=== PATIENT | female | born 1985 | race Caucasian/White ===

== ENCOUNTER 2018-11-30 06:49 | Observation (INO) ==
[2018-11-30] MEDS ORDERED: 0.9 % Sodium Chloride 1,000 ML IVC ONE (07:44)
--- NOTE | 2018-11-30 08:05 | Emergency Department Note ---
Disposition Clinical Impression: Thrombocytopenia, Elevated liver enzymes, Hyperbilirubinemia, Elevated INR Post-op bleeding Qualifiers: Surgical complication system/body Area: genitourinary Procedure type: genitourinary Qualified Code(s): N99.820 - Postprocedural hemorrhage of a genitourinary system organ or structure following a genitourinary system procedure Anemia Qualifiers: Anemia type: other cause Other causes of anemia: other cause, not classified Qualified Code(s): D64.89 - Other specified anemias Disposition: Admitted As Inpatient Condition: Fair Time of Disposition: 08:11 Female Urogenital HPI - General Chief complaint: ED Vaginal Bleeding Stated complaint: post op bleeding Time Seen by Provider: 11/30/18 07:30 Source: patient, EMS Limitations: no limitations Nursing Notes Reviewed: Yes Vital Signs Reviewed: Yes - History of Present Illness HPI Narrative: 33-year-old female presents emergency Department with concerns of vaginal bleeding. Patient reports she had a LEEP procedure but performed 8 days ago, since that time she has had increasing foul-smelling discharge. She notified her [employer] provider who prescribed an antibiotic. Unknown if this is vaginal cream versus oral pill however patient did not start taking medication as it was not preauthorized and she was unable to get up from the pharmacy. Patient states that around 2 AM she started developing brisk vaginal bleeding. She has gone through multiple pads over the past few hours. She was initially evaluated at [facility] who performed lab work and sent her to [place] emergency department for further evaluation. Upon reevaluation the patient is tachycardic, she required changing of her pad here in the emergency department. Patient reports mild suprapubic abdominal cramping without hematochezia or melen a or vomiting. Patient denies chest pain or shortness breath or palpitations. No history of bleeding disorder in the past. She does not take anticoagulant medication. - Related Data Home Medications Medication Instructions Recorded Confirmed Buprenorphine HCl/Naloxone HCl 1 tab SL 1-2XD 11/22/18 11/22/18 [Buprenorphin-Naloxon 8-2 mg Sl] Previous Rx's Medication Instructions Recorded Ibuprofen 800 mg PO Q8HR PRN #20 tablet 11/30/18 Tranexamic Acid [Lysteda] 1,300 mg PO TID 5 Days #30 tablet 11/30/18 metroNIDAZOLE [Flagyl] 500 mg PO TID 10 Days #30 tablet 11/30/18 Allergies Allergy/AdvReac Type Severity Reaction Status Date / Time No Known Allergies Allergy Verified 11/22/18 08:32 All systems ED: reviewed and negative except as stated. Review of Systems: As Per HPI Past Medical History - Past Medical History Attestation: Yes The following information was validated with the patient. Source: patient Medical history: Reports: other Psychiatric history: Reports: anxiety, depression - Social History Smoking Status: Current every day smoker Smokeless Tobacco Status: No Alcohol use: Reports: occasionally Drug use: Reports: other Physical Exam General: Alert and in no acute distress Skin: Warm, dry, intact Head: Normocephalic and atraumatic Neck: Supple, trachea midline and no tenderness Cardiovascular: Tachycardia no murmur, normal perfusion Respiratory: CTAB, no wheezing, cough, or respiratory distress Musculoskeletal: Normal strength, no tenderness, swelling or deformity GI: Soft, mild tenderness to palpation of the suprapubic region without evidence of rigidity, guarding, rebound, nondistended. : External vaginal exam performed with female nurse present in the room. No lacerations noted on external exam. Patient has brisk bright red bleeding present on exam. Neuro: A&O to person, place, time and situation. No focal deficits noted on exam Psychiatric: cooperative and appropriate mood and affect. - General Limitations: no limitations General appearance: alert, in no apparent distress Course - Reevaluation(s) Reevaluation #1: 0800 - spoke with OB coverage ,Nica Bains, regarding the patient's case and presentation and requested immediate OB support for further evaluation and likely need for cautery of the postop bleeding. Laboratory evaluation was ordered and IV fluids are being given. Patient is mildly tachycardic at 110 but is not hypotensive at this time. Vital Signs Temperature 98.2 F 11/30/18 06:53 Pulse Rate 94 11/30/18 06:53 Respiratory Rate 18 11/30/18 06:53 Blood Pressure 109/66 11/30/18 06:53 O2 Sat by Pulse Oximetry 100 11/30/18 06:53 Temperature 97.8 F 11/30/18 12:20 Pulse Rate 80 11/30/18 16:20 Respiratory Rate 16 11/30/18 16:20 Blood Pressure 100/51 11/30/18 16:20 O2 Sat by Pulse Oximetry 97 11/30/18 16:20 Oxygen Delivery Oxygen Delivery [0945] Nasal Cannula Oxygen Delivery [920] Nasal Cannula Oxygen Delivery [940] Nasal Cannula Oxygen Delivery [935] Nasal Cannula Oxygen Delivery [930] Nasal Cannula Oxygen Delivery [925] Nasal Cannula Oxygen Delivery Room Air Urogenital-Female - MDM Narrative Medical decision making narrative: Patient was evaluated in the emergency department by OB PA and then by the OB attending, Dr. Harmon. They were unable to control bleeding in the emergency department and then patient was taken to the OR for continued care. - Medical Records Medical records reviewed: Yes I reviewed the patient's medical records. - Lab Data Lab results reviewed: Yes I reviewed the patient's lab results. Result diagrams: 11/30/18 11:40 11/30/18 08:16 Lab Results 11/30/18 11/30/18 11/30/18 Range/Units 08:16 08:16 08:16 WBC 6.4 (4.3-11.1) K/mcL RBC 2.34 L (3.82-4.97) M/mcL Hgb 8.2 L (11.5-15.4) g/dL Hct 24.4 L (35.3-44.9) % MCV 104.3 H (83.0-100.0) fL MCH 35.0 H (28.0-33.3) pg MCHC 33.6 (31.6-35.5) g/dL RDW 13.9 (11.5-14.5) % Plt Count 39 L (140-400) K/mcL MPV 10.2 (9.4-12.4) fL Immature Gran % 0.6 (0-4) % Seg Neutrophils % 39.1 % Lymphocytes % 48.7 % Monocytes % 8.9 % Eosinophils % 1.9 % Basophils % 0.8 % Neutrophils # 2.5 (1.6-8.9) K/mcL Lymphocytes # 3.1 (0.6-4.6) K/mcL Monocytes # 0.6 (0.0-1.3) K/mcL Eosinophils # 0.1 (0.0-0.6) K/mcL Basophils # 0.1 (0.0-0.2) K/mcL Immature Plt Fraction 3.2 (1.1-6.1) % PT 30.2 H (9.4-12.1) Seconds INR 2.7 APTT 37.9 H (26.0-36.0) Seconds Sodium 140 (136-145) mEq/L Potassium 3.6 (3.5-5.1) mEq/L Chloride 107 (98-107) mEq/L Carbon Dioxide 26 (23-29) mEq/L BUN 7 (6-20) mg/dL Creatinine 0.66 (0.60-1.20) mg/dL Est GFR ( Amer) > 60 (> 60) Est GFR (Non-Af Amer) > 60 (> 60) BUN/Creatinine Ratio 11 (6-26) Glucose 111 H (70-105) mg/dL Calculated Osmolality 289 (280-300) Calcium 7.6 L (8.6-10.3) mg/dL Total Bilirubin 5.2 H (0.3-1.0) mg/dL Direct Bilirubin 3.0 H (0.0-0.2) mg/dL Indirect Bilirubin 2.2 H (0.0-1.2) mg/dL AST 79 H (13-39) Units/L ALT 30 (7-52) Units/L Alkaline Phosphatase 138 H (34-104) Units/L Serum Total Protein 4.8 L (6.4-8.9) g/dL Albumin 2.2 L (3.5-5.7) g/dL Globulin 2.6 (2.4-3.5) g/dL Albumin/Globulin Ratio 0.8 L (1.1-2.2) Blood Type Antibody Screen Crossmatch 11/30/18 Range/Units 08:16 WBC (4.3-11.1) K/mcL RBC (3.82-4.97) M/mcL Hgb (11.5-15.4) g/dL Hct (35.3-44.9) % MCV (83.0-100.0) fL MCH (28.0-33.3) pg MCHC (31.6-35.5) g/dL RDW (11.5-14.5) % Plt Count (140-400) K/mcL MPV (9.4-12.4) fL Immature Gran % (0-4) % Seg Neutrophils % % Lymphocytes % % Monocytes % % Eosinophils % % Basophils % % Neutrophils # (1.6-8.9) K/mcL Lymphocytes # (0.6-4.6) K/mcL Monocytes # (0.0-1.3) K/mcL Eosinophils # (0.0-0.6) K/mcL Basophils # (0.0-0.2) K/mcL Immature Plt Fraction (1.1-6.1) % PT (9.4-12.1) Seconds INR APTT (26.0-36.0) Seconds Sodium (136-145) mEq/L Potassium (3.5-5.1) mEq/L Chloride (98-107) mEq/L Carbon Dioxide (23-29) mEq/L BUN (6-20) mg/dL Creatinine (0.60-1.20) mg/dL Est GFR ( Amer) (> 60) Est GFR (Non-Af Amer) (> 60) BUN/Creatinine Ratio (6-26) Glucose (70-105) mg/dL Calculated Osmolality (280-300) Calcium (8.6-10.3) mg/dL Total Bilirubin (0.3-1.0) mg/dL Direct Bilirubin (0.0-0.2) mg/dL Indirect Bilirubin (0.0-1.2) mg/dL AST (13-39) Units/L ALT (7-52) Units/L Alkaline Phosphatase (34-104) Units/L Serum Total Protein (6.4-8.9) g/dL Albumin (3.5-5.7) g/dL Globulin (2.4-3.5) g/dL Albumin/Globulin Ratio (1.1-2.2) Blood Type O POSITIVE Antibody Screen NEGATIVE Crossmatch See Detail
[2018-11-30 08:31] LABS: Basophils % 0.8 %; Red Cell Distribution Width 13.9 % (11.5-14.5)
[2018-11-30 08:32] LABS: Basophils # 0.1 K/mcL (0.0-0.2); Eosinophils # 0.1 K/mcL (0.0-0.6); Eosinophils % 1.9 %; Hematocrit 24.4 % (35.3-44.9); Hemoglobin 8.2 g/dL (11.5-15.4); Immature Granulocytes % 0.6 % (0-4); Immature Platelets 3.2 % (1.1-6.1); Lymphocytes # 3.1 K/mcL (0.6-4.6); Lymphocytes % 48.7 %; Mean Corpuscular HGB Conc 33.6 g/dL (31.6-35.5); Mean Corpuscular Volume 104.3 fL (83.0-100.0); Mean Platelet Volume 10.2 fL (9.4-12.4); Monocytes # 0.6 K/mcL (0.0-1.3); Monocytes % 8.9 %; Neutrophils # 2.5 K/mcL (1.6-8.9); Red Blood Count 2.34 M/mcL (3.82-4.97); Segmented Neutrophils % 39.1 %; White Blood Count 6.4 K/mcL (4.3-11.1)
[2018-11-30 08:34] LABS: Platelet Count 39 K/mcL (140-400)
[2018-11-30 08:40] LABS: INR 2.7; Prothrombin Time 30.2 Seconds (9.4-12.1)
[2018-11-30] MEDS ORDERED: Lidocaine/EPI 1:100k 1% 50 ML VIAL INFILT STA (08:40)
[2018-11-30] MEDS ORDERED: *HR* FentaNYL (PF) 100 MCG/2 ML VIAL IVP ONE (08:42)
[2018-11-30 08:43] LABS: Activated Partial Thrombo Time 37.9 Seconds (26.0-36.0)
[2018-11-30 08:50] LABS: Alanine Aminotransferase 30 Units/L (7-52); Albumin 2.2 g/dL (3.5-5.7); Albumin/Globulin Ratio 0.8 (1.1-2.2); Alkaline Phosphatase 138 Units/L (34-104); Aspartate Amino Transferase 79 Units/L (13-39); BUN/Creatinine Ratio 11 (6-26); Bilirubin,Indirect 2.2 mg/dL (0.0-1.2); Bilirubin,Total 5.2 mg/dL (0.3-1.0); Blood Urea Nitrogen 7 mg/dL (6-20); Calcium 7.6 mg/dL (8.6-10.3); Carbon Dioxide 26 mEq/L (23-29); Chloride 107 mEq/L (98-107); Globulin 2.6 g/dL (2.4-3.5); Glucose 111 mg/dL (70-105); Osmolality,Calculated 289 (280-300); Potassium 3.6 mEq/L (3.5-5.1); Sodium 140 mEq/L (136-145); Total Protein 4.8 g/dL (6.4-8.9); eGFR For African Americans > 60 (> 60); eGFR For Non-African Americans > 60 (> 60)
[2018-11-30] MEDS ORDERED: *HR* Meperidine 50 MG/ML SYRINGE IVP ONE (08:50)
[2018-11-30] MEDS ORDERED: MetroNIDAZOLE 500 MG/100 ML 500 MG/100 ML BAG IVPB ONE (08:50)
[2018-11-30] MEDS ORDERED: *HR* Midazolam HCl 2 MG/2 ML VIAL IVP ONE (08:50)
[2018-11-30] MEDS ORDERED: Ondansetron 4 MG/2 ML VIAL IVP ONE (09:04)
[2018-11-30] MEDS ORDERED: Calcium Gluconate 1gm/50mL 1 GM/50 ML BAG IVPB ONE (09:12)
[2018-11-30] MEDS ORDERED: Ringers Solution, Lactated 1,000 ML ONE (09:33)
--- NOTE | 2018-11-30 09:39 | OB/GYN History & Physical ---
Date of Encounter: 11/30/18 Time of Encounter: 09:36 Assessment and Plan (1) Thrombocytopenia Current visit: Yes Status: Acute Platelets being monitored at this time Lysteda has been started (2) Anemia Current visit: Yes Status: Acute Will transfuse 2 units packed RBC Patient awaiting OR Qualifiers: Anemia type: other cause Other causes of anemia: other cause, not classified Qualified Code(s): D64.89 - Other specified anemias (3) Post-op bleeding Current visit: Yes Status: Acute Dr. Fuller at patient's bedside POC: To OR for exam and treatment Will transfuse 2 units of RBCs Qualifiers: Surgical complication system/body Area: genitourinary Procedure type: genitourinary Qualified Code(s): N99.820 - Postprocedural hemorrhage of a genitourinary system organ or structure following a genitourinary system procedure History of Present Illness Chief complaint: Vaginal bleeding Postop day 8 LEEP procedure HPI: Ms. Guthrie is a 33 year old female presented to the emergency Department with concerns of vaginal bleeding. Patient reports she had a LEEP procedure but performed 8 days ago, since that time she has had increasing foul-smelling discharge. Patient states that around 0200she started developing brisk vaginal bleeding. She has gone through multiple pads over the past few hours. She was initially evaluated at [facility] who performed lab work and sent her to [place] emergency department for further evaluation. Upon reevaluation the patient is tachycardic, she required changing of her pad here in the emergency department. Patient does have a history of Thrombocytopenia. Past Med Surg Social Fam HX - Past Medical History Source: patient Medical history: liver disease, other Additional medical history: ADD. Hep C. Liver Disease. High Grade Precancerous Changes on Cervical Biopsies. Post Traumatic Stress Disorder. Unable to Tolerate Procedure in Office. Hx of Herion Abuse. Kidney Stones Psychiatric history: anxiety, depression - Past Surgical History Additional surgical history: Ear Tube age 4. EGD. LEEP - Social History Smoking Status: Current every day smoker Smokeless Tobacco Status: No Alcohol use: occasionally Drug use: other Obstetrical History - Pregnancies : 0 Medications and Allergies Buprenorphine HCl/Naloxone HCl [Buprenorphin-Naloxon 8-2 mg Sl] 1 tab SL 1-2XD 11/22/18 [History] Allergy/AdvReac Type Severity Reaction Status Date / Time No Known Allergies Allergy Verified 11/22/18 08:32 Review of System OB - Constitutional Constitutional ROS IM: no chills, no fever(s), no headache(s) - Cardiovascular Cardiovascular: no chest pain, no palpitations, no syncope - Respiratory Respiratory: no dyspnea - Gastrointestinal Gastrointestinal: abdominal pain (that started about an hour abgo), cramping, nausea, no constipation, no diarrhea, no heartburn, no vomiting - Genitourinary Genitourinary: abnormal vaginal bleeding (that started around 0200), vaginal discharge, vaginal odor, no difficulty urinating, no genital pruritis, no urinary frequency, no urinary hesitancy, no urinary urgency, no vaginal pruritis Exam - Vital Signs Vital signs: Initial Vital Signs Temp Pulse Resp BP Pulse Ox 98.2 F 94 18 109/66 100 11/30/18 06:53 11/30/18 06:53 11/30/18 06:53 11/30/18 06:53 11/30/18 06:53 - Constitutional Constitutional: well developed, well nourished, average body habitus - HEENT HEENT: Normocephaly, Mucus Membranes Moist - Neck Neck exam: full ROM, supple - Lungs Respiratory exam: CTAB - Cardiovascular Cardiovascular exam: RRR, +S1, +S2 - Abdomen Abdomen: Present: bowel sounds normal - Extremities Extremities exam: full ROM, normal capillary refill, normal inspection Deep Tendon Reflex Grade: 2+ Normal - Anus/Rectum Anus/Rectum: Present: normal perianal skin - Comments Comments: Large amount of bright red blood noted with clots. Active bleeding noted with speculum exam. Unable to see where bleeding is coming from due to patient not tolerating exam. Results Result Diagrams: 11/30/18 08:16 11/30/18 08:16 Abnormal lab results RBC 2.34 M/mcL (3.82-4.97) L 11/30/18 08:16 Hgb 8.2 g/dL (11.5-15.4) L 11/30/18 08:16 Hct 24.4 % (35.3-44.9) L 11/30/18 08:16 MCV 104.3 fL (83.0-100.0) H 11/30/18 08:16 MCH 35.0 pg (28.0-33.3) H 11/30/18 08:16 Plt Count 39 K/mcL (140-400) L 11/30/18 08:16 PT 30.2 Seconds (9.4-12.1) H 11/30/18 08:16 APTT 37.9 Seconds (26.0-36.0) H 11/30/18 08:16 Glucose 111 mg/dL (70-105) H 11/30/18 08:16 Calcium 7.6 mg/dL (8.6-10.3) L 11/30/18 08:16 Total Bilirubin 5.2 mg/dL (0.3-1.0) H 11/30/18 08:16 Direct Bilirubin 3.0 mg/dL (0.0-0.2) H 11/30/18 08:16 Indirect Bilirubin 2.2 mg/dL (0.0-1.2) H 11/30/18 08:16 AST 79 Units/L (13-39) H 11/30/18 08:16 Alkaline Phosphatase 138 Units/L (34-104) H 11/30/18 08:16 Serum Total Protein 4.8 g/dL (6.4-8.9) L 11/30/18 08:16 Albumin 2.2 g/dL (3.5-5.7) L 11/30/18 08:16 Albumin/Globulin Ratio 0.8 (1.1-2.2) L 11/30/18 08:16 Crossmatch See Detail 11/30/18 08:16 All other labs normal.
[2018-11-30] MEDS ORDERED: 0.9 % Sodium Chloride 250 ML ONE (09:46)
--- NOTE | 2018-11-30 09:59 | Anesthesia Evaluation PreOp ---
Date of Encounter: 11/30/18 Time of Encounter: 09:57 - Past History Planned Operation: LEEP revision for bleeding Cardiac History: Denies any Significant Hx Pulmonary History: Former smoker [employer] History: Other (anxiety,depression,PTSD) Other Medical History: Hepatic (HEP C, cirrhosis,), Other (thrombocytopenia) Anesthesia History: Past Anesthesia (leep 11/22/18) : No Test: Negative Alcohol Use: occasionally Drug use: other Medications and Allergies Buprenorphine HCl/Naloxone HCl [Buprenorphin-Naloxon 8-2 mg Sl] 1 tab SL 1-2XD 11/22/18 [History] Allergy/AdvReac Type Severity Reaction Status Date / Time No Known Allergies Allergy Verified 11/22/18 08:32 - Meds/Allergy Pre-op Review Medications Reviewed: Yes Allergies Reviewed: Yes Beta Blockers on Current Med List: No Anesthesia Results - Labs 11/30/18 08:16 11/30/18 08:16 Laboratory Tests 11/30/18 11/30/18 11/30/18 08:16 08:16 08:16 Hgb 8.2 L Hct 24.4 L PT 30.2 H APTT 37.9 H Sodium 140 Potassium 3.6 Anesthesia Exam O2 Sat Height 1.63 m Weight 68.039 kg O2 Sat by Pulse Oximetry 96 O2 Sat by Pulse Oximetry 100 Vital Signs Temp Pulse Resp BP Pulse Ox 98.2 F 94 18 109/66 100 11/30/18 06:53 11/30/18 06:53 11/30/18 06:53 11/30/18 06:53 11/30/18 06:53 - HEENT Pupil (Motor): Pupils equal, EOMI Mallampati: II Teeth: Normal - [employer] LOC: Oriented, Confused [employer] Motor: Normal RUE, Normal LUE, Normal RLE, Normal LLE, Normal Face [employer] Sensory: Normal: RUE, LUE, RLE, LLE, Face - Cardiac Rhythm: Regular Murmur: None JVD: No - Pulmonary Breath Sounds: bilateral Clear Respiratory Effort: Symmetrical Anesthesia Assess/Plan ASA Score: 3, 4, E Level of consciousness: Asleep with sluggish response to stimulus Anesthetic Plan: General Monitoring Plan: Standard Monitors Recovery Plan: PACU
[2018-11-30] MEDS ORDERED: Ringers Solution, Lactated 1,000 ML IVC SCH (10:00)
[2018-11-30] MEDS ORDERED: Bupivacaine/EPI 1:200k 0.5%PF 30 ML VIAL ONE (10:01)
[2018-11-30] MEDS ORDERED: Ferric Subsulfate 8 ML TOPICAL TP ONE (10:03)
[2018-11-30] MEDS ORDERED: *HR* OxyCODONE Immed Rel 5 MG TABLET PO PRN (10:05)
[2018-11-30] MEDS ORDERED: *HR* Meperidine 25 MG/ML SYRINGE IVP PRN (10:05)
[2018-11-30] MEDS ORDERED: *HR* Promethazine 25 MG/ML VIAL IVP PRN (10:05)
[2018-11-30] MEDS ORDERED: *HR* HYDROmorphone (PF) 1 MG/ML SYRINGE IVP PRN (10:05)
[2018-11-30] MEDS ORDERED: *HR* Succinylcholine 200 MG/10 ML VIAL IVP ONE (10:42)
[2018-11-30] MEDS ORDERED: *HR* Propofol 200 MG/20 ML VIAL IVP ONE (10:42)
[2018-11-30] MEDS ORDERED: *HR* FentaNYL (PF) 100 MCG/2 ML VIAL ONE ×2 (10:42→11:02)
[2018-11-30] MEDS ORDERED: Lidocaine HCL 4 ML Topical Solution (Laryng-O-Jet Kit Sterile Pak) TP ONE (10:42)
[2018-11-30] MEDS ORDERED: *HR* PHENYLEPHRINE 1,000 MCG/10 ML SYRINGE IVP ONE ×2 (10:42→10:53)
[2018-11-30] MEDS ORDERED: Lidocaine -MPF 2% 2 ML VIAL ONE (10:42)
[2018-11-30] MEDS ORDERED: Ondansetron 4 MG/2 ML VIAL ONE (10:42)
[2018-11-30] MEDS ORDERED: Dexamethasone 4 MG/ML VIAL ONE (10:42)
[2018-11-30] MEDS ORDERED: *HR* Belladonna Alkaloids/Opium 30 MG RECTAL SUPPOSITORY RC ONE (10:55)
[2018-11-30] MEDS ORDERED: Acetaminophen IV 1,000 MG/100 ML INFUS..BTL ONE (11:13)
[2018-11-30] MEDS ORDERED: *HR* Buprenorphine HCl 8 MG TAB.SUBL SL PRN (11:19)
[2018-11-30] MEDS ORDERED: NON-FORMULARY MEDICATION 1 EACH EACH (Buprenorphine Hcl/Naloxone Hcl [Buprenorphin-Naloxon SL SCH (11:30)
--- NOTE | 2018-11-30 11:36 | Discharge Summary ---
Outpatient Proc Discharge Plan - Plan Additional Instructions: Pelvic rest including no tampons, no douching, no intercourse. Call for heavy vaginal bleeding, soaking 2 maxi pads an hour or severe cramping not relieved with pain medication. No driving for 48 hours or while taking any narcotic pain medications. Follow-up in 1 weeks for a postop check. Call for any fevers 100.5 or greater. Prescriptions: metroNIDAZOLE [Flagyl] 500 mg PO TID 10 Days #30 tablet Ibuprofen 800 mg PO Q8HR PRN #20 tablet PRN Reason: Pain Tranexamic Acid [Lysteda] 1,300 mg PO TID 5 Days #30 tablet Home Medications: Buprenorphine HCl/Naloxone HCl [Buprenorphin-Naloxon 8-2 mg Sl] 1 tab SL 1-2XD 11/22/18 [History] Ibuprofen 800 mg PO Q8HR PRN #20 tablet 11/30/18 [Rx] Tranexamic Acid [Lysteda] 1,300 mg PO TID 5 Days #30 tablet 11/30/18 [Rx] metroNIDAZOLE [Flagyl] 500 mg PO TID 10 Days #30 tablet 11/30/18 [Rx]
[2018-11-30 11:54] LABS: Hematocrit 29.4 % (35.3-44.9)
[2018-11-30 11:56] LABS: Hemoglobin 9.8 g/dL (11.5-15.4)
--- NOTE | 2018-11-30 12:04 | Operative Note ---
Date of procedure: 11/30/18 Pre-op diagnosis: Status post LEEP, vaginal bleeding, thrombocytopenia, cervicitis, anemia Post-op diagnosis: same Procedure: Cervical retention suture placement and cautery of cervix Implants: None Complications: None Anesthesia: GETA Local Anesthetics: 0.5% Sensorcaine HCL with Epinephrine 1:200,000 SubQ (cc) Surgeon: Yvette Fuller Was there an diagnostic assistant present: No Estimated blood loss (cc): 20 Specimen: None Condition: stable Disposition: PACU Procedure in Detail: Patient transferred from the emergency department to the operating room for evaluation and treatment of heavy cervical bleeding and anemia. She has chronic thrombocytopenia which was stable. Informed consent obtained prior to OR arrival. The patient was given general anesthesia adequate for pelvic surgery. The patient was placed in the dorsal lithotomy position in yellowfin stirrups and prepped and draped in the usual sterile fashion. Timeout was completed. A speculum was placed in the vaginal vault and the cervix was identified. There was bleeding on the lower edge of the cervix at that time. Monsel's had been previously applied. The cervix was grasped at the 12 o'clock position with a single-tooth tenaculum. 10 mL of half percent Marcaine with epinephrine was injected for paracervical block. A Bovie was used to cauterize the lower edge of the cervical/LEEP margin that was bleeding. No active arterial type bleeding was identified at this time. 0 Vicryl sutures were then placed at the 4:00 to 1 o'clock position and 7:00 to 10 o'clock position and tied down. The single t ooth tenaculum was removed. The cervix was then reapproximated to the midline with sutures. Monsel's was applied with a small Q-tip deeply and then superficially. Good hemostasis was identified. The speculum was removed and 5 minutes time was given and then speculum was replaced for further cervical evaluation. No active bleeding or oozing was identified. Instruments were removed. The patient was given a B&O suppository. She was taken out of dorsal lithotomy position. She was taken to recovery room in stable condition. EBL 20 mL. All sponge and instrument counts were correct at the end of the procedure. She received 2 units of packed red cells which were started in the emergency department and the second unit started in the operating room prior to transfer to PACU.
[2018-11-30 16:43] VITALS: BP 100/51
--- NOTE | 2018-11-30 16:53 | Anesthesia Evaluation Post Op ---
Date of Encounter: 11/30/18 Time of Encounter: 16:53 - Discharge PostOp Status: Discharge Patient to home (Patient's vital signs have been reviewed. Patient is stable postoperatively and has adequately recovered from anesthesia. Patient is determined to have stable airway patency and respiratory function including respiratory rate and oxygen saturation. Patient has a stable heart rate, blood pressure and adequate hydration. Patients mental status is acceptable. Patients temperature is appropriate. Pain and nausea are adequately controlled)
== END 2018-11-30 17:56 | disposition home or self-care (01) ==
LOC: EMEROOARM 06:49 → 1NENUOBS 09:53 → INTOOBSV 09:53 → 1NENUOBS 09:55
PROVIDERS: ADMIT Obstetrics & Gynecology; ATTEND Obstetrics & Gynecology